=== PATIENT | male | born 1960 | race Caucasian/White ===

== ENCOUNTER 2025-03-01 10:58 | Emergency (ER) | payer MEDICARE ==
[~2025-03-01] VITALS: Ht 175.3 cm; Wt 103.0 kg
[~2025-03-01 10:58] MED LIST: KEPP500 PO
[2025-03-01 11:05] VITALS: O2SAT 96
[2025-03-01 11:51] LABS: BASOPHILS % 0.7 % (0.0-2.0); EOSINOPHILS % 4.1 % (0.0-5.0); HEMATOCRIT. 41.1 % (42.0-52.0); HEMOGLOBIN. 13.5 g/dL (14.0-18.0); LYMPHOCYTES % 25.0 % (20.0-50.0); MEAN PLATELET VOLUME 8.4 fl (7.4-10.4); MONOCYTES % 4.5 % (2.0-8.0); NEUTROPHILS % 65.7 % (40.0-76.0); PLATELET 228 x1000/uL (130-400); RED BLOOD CELL COUNT 4.41 mill/uL (4.7-6.1); RED CELL DISTRIBUTION WIDTH 15.0 % (11.6-14.6)
[2025-03-01 12:04] LABS: CREATININE 2.0 mg/dL (0.6-1.3); UREA NITROGEN BLOOD 16.0 mg/dL (9-23)
[2025-03-01] MEDS ORDERED: DEXT15DR5 LEFTEYE (12:14)
[2025-03-01] MEDS ORDERED: P20 MT (12:14)
[2025-03-01 12:22] VITALS: BP 173/98; PULSE 66; RESP 18; TEMP 36.9; O2SAT 96
== END 2025-03-01 12:27 | disposition home or self-care (01) ==
LOC: ER 10:58
DX: G51.0 Bell's palsy (principal); N18.6 End stage renal disease; I12.0 Hypertensive chronic kidney disease with stage 5 chronic kidney disease or end stage renal disease; Z79.899 Other long term (current) drug therapy; Z99.2 Dependence on renal dialysis
CPT/HCPCS: 36415; 80048; 85025; 99284

== ENCOUNTER 2025-03-21 08:36 | Inpatient (IN) | payer MEDICARE ==
[~2025-03-21] VITALS: Ht 175.3 cm; Wt 116.6 kg
[~2025-03-21 08:36] MED LIST changes: +DEXT15DR5 LEFTEYE; +P20 MT
[2025-03-21] MEDS: SODIUM CHLORIDE 0.9% (SEPSIS BOLUS) IV ONE ×2 (09:26)
[2025-03-21] MEDS: PIPERACILLIN/TAZO 3.375G/50ML 50 ML IV SCH (09:31)
[2025-03-21 09:37] LABS: HEMATOCRIT. 43.0 % (42.0-52.0); HEMOGLOBIN. 14.3 g/dL (14.0-18.0); MEAN PLATELET VOLUME 9.0 fl (7.4-10.4); PLATELET 162 x1000/uL (130-400); RED BLOOD CELL COUNT 4.65 mill/uL (4.7-6.1); RED CELL DISTRIBUTION WIDTH 15.3 % (11.6-14.6)
[2025-03-21] MEDS: ACETAMINOPHEN 1000MG/100ML 100 ML IV ONE (09:44)
[2025-03-21 09:45] LABS: CREATININE 1.9 mg/dL (0.6-1.3); UREA NITROGEN BLOOD 16 mg/dL (9-23)
[2025-03-21 09:47] LABS: ASPARTATE AMINOTRANSFERASE 19 IU/L (<34); BILIRUBIN DIRECT 0.3 mg/dL (<=3.0); BILIRUBIN TOTAL 1.4 mg/dL (0.1-1.0); PROTEIN TOTAL 7.1 g/dL (6.0-8.3)
[2025-03-21 09:53] LABS: INR 1.0
[2025-03-21 09:59] LABS: TROPONIN I HIGH SENSITIVITY 26 ng/L (3.0-53)
[2025-03-21] MEDS: VANCOMYCIN 1G PREMIX 200 ML IV SCH (10:07)
[2025-03-21 10:09] LABS: BAND% 14.0 % (1.0-6.0); LYMPHOCYTES % MANUAL 9.0 % (20.0-50.0); NEUTROPHILS % MANUAL 77.0 % (45.0-75.0); PLATELET ESTIMATE NORMAL
[2025-03-21 11:08] LABS: CLARITY URINE CLEAR (CLEAR); COLOR URINE YELLOW (YELLOW); GLUCOSE URINE NEGATIVE (NEGATIVE); KETONES URINE NEGATIVE (NEGATIVE); LEUKOCYTE ESTERASE URINE NEGATIVE (NEGATIVE); NITRITE URINE NEGATIVE (NEGATIVE); OCCULT BLOOD URINE 1+ (NEGATIVE); PH URINE 7.5 (4.5-8.0); PROTEIN URINE 3+ (NEGATIVE); SPECIFIC GRAVITY URINE 1.011 (1.005-1.030); UROBILINOGEN URINE 0.2 E.U./dL (0.2-1.0)
[2025-03-21 11:50] LABS: WBC URINE 0-2 /hpf (0-2)
[2025-03-21 11:51] LABS: SQUAMOUS EPITHELIAL CELL URINE 1+ /lpf (RARE/1+)
[2025-03-21 11:52] LABS: BACTERIA URINE 1+
[2025-03-21 11:53] LABS: HYALINE CASTS URINE 0-5 /lpf
[2025-03-21 12:00] VITALS: BP 147/89; PULSE 73; RESP 17; TEMP 36.4; O2SAT 95
[2025-03-21 12:21] VITALS: BP 147/89; PULSE 73; RESP 17; TEMP 36.418
[2025-03-21] MEDS ORDERED: ZOLPIDEM TARTRATE 5MG TABLET PO PRN (13:15)
[2025-03-21] MEDS ORDERED: ACETAMINOPHEN 650MG/20.3ML UDC PO PRN (13:45)
[2025-03-21] MEDS: CEFTRIAXONE 1GM/50ML 50 ML IV SCH (14:32)
[2025-03-21] MEDS: MAGNESIUM 4 G PREMIX 100 ML IV ONE (14:32)
[2025-03-21] MEDS: AZITHROMYCIN 500 MG TABLET PO SCH (15:32)
[2025-03-21 16:00] VITALS: BP 152/88; PULSE 64; RESP 17; TEMP 36.7; O2SAT 98
[2025-03-21 20:00] VITALS: BP 169/96; PULSE 63; RESP 17; TEMP 37.1; O2SAT 97
[2025-03-21] MEDS: FAMOTIDINE 20MG TABLET PO SCH (20:17)
[2025-03-21] MEDS: GUAIFENESIN 600MG ER TABLET PO SCH (20:17)
[2025-03-21] MEDS: LEVETIRACETAM 500MG TABLET PO SCH (20:17)
[2025-03-21] MEDS: ENOXAPARIN 30MG/0.3ML SYR SUBCUT SCH (20:18)
[2025-03-21] MEDS: CLONIDINE 0.1MG TABLET PO PRN (21:09)
[2025-03-22] VITALS (12 sets, daily range): BP systolic 137–168; BP diastolic 75–100; PULSE 58–93; RESP 16–21; TEMP 36.6–37.2; O2SAT 93–97
[2025-03-22 06:45] LABS: BASOPHILS % 0.2 % (0.0-2.0); EOSINOPHILS % 0.8 % (0.0-5.0); HEMATOCRIT. 40.8 % (42.0-52.0); HEMOGLOBIN. 13.1 g/dL (14.0-18.0); LYMPHOCYTES % 9.6 % (20.0-50.0); MEAN PLATELET VOLUME 9.0 fl (7.4-10.4); MONOCYTES % 3.3 % (2.0-8.0); NEUTROPHILS % 86.1 % (40.0-76.0); PLATELET 137 x1000/uL (130-400); RED BLOOD CELL COUNT 4.34 mill/uL (4.7-6.1); RED CELL DISTRIBUTION WIDTH 15.4 % (11.6-14.6)
[2025-03-22 07:01] LABS: CREATININE 1.8 mg/dL (0.6-1.3)
[2025-03-22 07:03] LABS: UREA NITROGEN BLOOD 15 mg/dL (9-23)
[2025-03-22 07:05] LABS: PHOSPHORUS 4.1 mg/dL (2.5-4.9)
[2025-03-22 08:18] LABS: INFLUENZA TYPE A Presumptive Negative (Pres. Neg.)
[2025-03-22 08:20] LABS: INFLUENZA TYPE B Presumptive Negative (Pres. Neg.)
[2025-03-22] MEDS ORDERED: PROMETHAZINE/DEXTROMETHORPHAN 6.25-15MG/5ML PO PRN (12:00)
[2025-03-22] MEDS ORDERED: IPRATROPIUM/ALBUTEROL 0.5-3(2.5)MG/3ML NEB HHN PRN (12:00)
[2025-03-22] MEDS: METHYLPREDNISOLONE SOD SUCC 125MG/2ML (ACT-O-VIAL) IV NR (12:19)
[2025-03-22] MEDS: IPRATROPIUM/ALBUTEROL 0.5-3(2.5)MG/3ML NEB HHN SCH (12:24)
[2025-03-22] MEDS: DEXT 5%/0.2% NACL 1,000 ML IV SCH (13:20)
[2025-03-22 14:43] LABS: BG BASE EXCESS 1.8 mmol/L (-2.0-3.0); BG CARBOXYHEMOGLOBIN 2.1 % (0.5-1.5); BG DEOXYHEMOGLOBIN 4.8 % (0.0-5.0); BG FRACTION INSPIRED OXYGEN 36; BG HCO3 ACT 32.5 mmol/L (21.0-28.0); BG METHEMOGLOBIN 0.0 % (0.5-1.5); BG OXYGEN SATURATION 95.1 % (94.0-98.0); BG OXYHEMOGLOBIN 93.1 % (94.0-98.0); BG PCO2 84.4 mmHg (35.0-48.0); BG PH 7.204 (7.350-7.450); BG PO2 78.4 mmHg (83.0-108.0); BG SAMPLE SITE RIGHT RADIAL; BG TOTAL HEMOGLOBIN 14.2 g/dL (13.5-17.5); BG VENT MODE NASAL CANNULA
[2025-03-22] MEDS: METHYLPREDNISOLONE SOD SUCC 40MG/ML (ACT-O-VIAL) IV SCH (21:48)
[2025-03-22] MEDS: GUAIFENESIN 600MG ER TABLET PO SCH (21:49)
[2025-03-23] VITALS (21 sets, daily range): BP systolic 134–178; BP diastolic 82–96; PULSE 49–63; RESP 16–25; TEMP 36.1–36.4; O2SAT 89–100
[2025-03-23 08:23] LABS: BASOPHILS % 0.0 % (0.0-2.0); EOSINOPHILS % 0.0 % (0.0-5.0); HEMATOCRIT. 37.8 % (42.0-52.0); HEMOGLOBIN. 12.3 g/dL (14.0-18.0); LYMPHOCYTES % 9.1 % (20.0-50.0); MEAN PLATELET VOLUME 9.5 fl (7.4-10.4); MONOCYTES % 1.3 % (2.0-8.0); NEUTROPHILS % 89.6 % (40.0-76.0); PLATELET 131 x1000/uL (130-400); RED BLOOD CELL COUNT 4.04 mill/uL (4.7-6.1); RED CELL DISTRIBUTION WIDTH 15.3 % (11.6-14.6)
[2025-03-23 08:47] LABS: CREATININE 2.3 mg/dL (0.6-1.3); UREA NITROGEN BLOOD 28.0 mg/dL (9-23)
[2025-03-24] VITALS (14 sets, daily range): BP systolic 138–167; BP diastolic 83–124; PULSE 48–59; RESP 16–28; TEMP 36.4–36.8; O2SAT 94–98
[2025-03-24 06:05] LABS: HEMATOCRIT. 36.9 % (42.0-52.0); HEMOGLOBIN. 12.1 g/dL (14.0-18.0); MEAN PLATELET VOLUME 9.4 fl (7.4-10.4); PLATELET 140 x1000/uL (130-400); RED BLOOD CELL COUNT 4.00 mill/uL (4.7-6.1); RED CELL DISTRIBUTION WIDTH 15.2 % (11.6-14.6)
[2025-03-24 06:11] LABS: CREATININE 2.2 mg/dL (0.6-1.3)
[2025-03-24 06:12] LABS: UREA NITROGEN BLOOD 35.0 mg/dL (9-23)
[2025-03-24 17:03] LABS: LYMPHOCYTES % MANUAL 9.0 % (20.0-50.0); MONOCYTES % MANUAL 2.0 % (2.0-8.0); NEUTROPHILS % MANUAL 89.0 % (45.0-75.0); PLATELET ESTIMATE SLIGHTLY DECREASED
[2025-03-25] VITALS (14 sets, daily range): BP systolic 135–166; BP diastolic 64–89; PULSE 48–65; RESP 16–26; TEMP 36.2–36.8; O2SAT 94–100
[2025-03-25] MEDS: HYDRALAZINE 20MG/ML VIAL IV PRN (00:22)
[2025-03-25 06:25] LABS: CREATININE 1.9 mg/dL (0.6-1.3); UREA NITROGEN BLOOD 32.0 mg/dL (9-23)
[2025-03-25] MEDS: ACETAMINOPHEN 650MG/20.3ML UDC PO PRN (12:13)
[2025-03-26] VITALS (11 sets, daily range): BP systolic 145–183; BP diastolic 81–100; PULSE 58–70; RESP 15–24; TEMP 36.7–36.9; O2SAT 91–98
[2025-03-27] VITALS (10 sets, daily range): BP systolic 151–162; BP diastolic 81–86; PULSE 64–71; RESP 16–22; TEMP 36.5–36.9; O2SAT 92–97
[2025-03-27 09:38] LABS: BG BASE EXCESS 4.9 mmol/L (-2.0-3.0); BG CARBOXYHEMOGLOBIN 1.9 % (0.5-1.5); BG DEOXYHEMOGLOBIN 15.0 % (0.0-5.0); BG FRACTION INSPIRED OXYGEN 21; BG HCO3 ACT 33.3 mmol/L (21.0-28.0); BG METHEMOGLOBIN 0.1 % (0.5-1.5); BG OXYGEN SATURATION 84.7 % (94.0-98.0); BG OXYHEMOGLOBIN 83.0 % (94.0-98.0); BG PCO2 67.9 mmHg (35.0-48.0); BG PH 7.308 (7.350-7.450); BG PO2 51.1 mmHg (83.0-108.0); BG SAMPLE SITE RIGHT RADIAL; BG TOTAL HEMOGLOBIN 13.5 g/dL (13.5-17.5); BG VENT MODE ROOM AIR
[2025-03-27] MEDS: CEFTRIAXONE 1GM/50ML 50 ML IV SCH (14:00)
[2025-03-28] VITALS: BP 145/86; PULSE 82; RESP 18; TEMP 36.8; O2SAT 94
[2025-03-28 04:00] VITALS: BP 158/89; PULSE 79; RESP 16; TEMP 36.5; O2SAT 95
[2025-03-28 07:01] LABS: CREATININE 1.8 mg/dL (0.6-1.3); UREA NITROGEN BLOOD 26 mg/dL (9-23)
[2025-03-28 07:03] LABS: PHOSPHORUS 3.5 mg/dL (2.5-4.9)
[2025-03-28 07:28] LABS: HEMATOCRIT. 37.8 % (42.0-52.0); HEMOGLOBIN. 12.4 g/dL (14.0-18.0); MEAN PLATELET VOLUME 9.7 fl (7.4-10.4); PLATELET 170 x1000/uL (130-400); RED BLOOD CELL COUNT 4.06 mill/uL (4.7-6.1); RED CELL DISTRIBUTION WIDTH 15.3 % (11.6-14.6)
[2025-03-28 08:00] VITALS: BP 129/87; PULSE 66; RESP 18; TEMP 36.7; O2SAT 97
[2025-03-28 12:00] VITALS: BP 169/93; PULSE 63; RESP 18; TEMP 36.8; O2SAT 95
[2025-03-28 16:00] VITALS: BP 175/91; PULSE 66; RESP 18; TEMP 36.8; O2SAT 95
[2025-03-28 16:10] LABS: EOSINOPHILS % MANUAL 1.0 % (0.0-5.0); LYMPHOCYTES % MANUAL 21.0 % (20.0-50.0); MONOCYTES % MANUAL 6.0 % (2.0-8.0); NEUTROPHILS % MANUAL 72.0 % (45.0-75.0); PLATELET ESTIMATE NORMAL
[2025-03-28 20:00] VITALS: BP 151/84; PULSE 60; RESP 18; TEMP 36.6; O2SAT 94
[2025-03-29] VITALS: BP 149/74; PULSE 64; RESP 16; TEMP 36.5; O2SAT 97
[2025-03-29 04:00] VITALS: BP 165/87; PULSE 62; RESP 18; TEMP 36.5; O2SAT 96
[2025-03-29 08:00] VITALS: BP 164/84; PULSE 64; RESP 15; TEMP 36.7; O2SAT 97
[2025-03-29 12:00] VITALS: BP 155/86; PULSE 60; RESP 16; TEMP 36.8; O2SAT 93
[2025-03-29] MEDS ORDERED: LEVO750T68 PO (13:16)
[2025-03-29 14:03] VITALS: BP 155/86; PULSE 60; RESP 16; TEMP 98.3
== END 2025-03-29 16:04 | disposition home health service (06) | DRG 871 ==
LOC: ER 09:24 → 5WST 10:24 → EDBEDREQTM 10:27 → EDBEDREQ 10:27 → ENRESERV 10:54 → 5EST 03-22 17:47 → 5WST 03-26 18:50 → 5EST 03-26 19:12 → 5WST 03-26 21:52
PROVIDERS: ADMIT Internal Medicine; ATTEND Internal Medicine
PROC: 5A09357 Assistance with Respiratory Ventilation, Less than 24 Consecutive Hours, Continuous Positive Airway Pressure (ICD-10-PCS; principal; 2025-03-22)
PROC: 5A09357 Assistance with Respiratory Ventilation, Less than 24 Consecutive Hours, Continuous Positive Airway Pressure (ICD-10-PCS; 2025-03-23)
PROC: 5A09357 Assistance with Respiratory Ventilation, Less than 24 Consecutive Hours, Continuous Positive Airway Pressure (ICD-10-PCS; 2025-03-24)
DX: A41.51 Sepsis due to Escherichia coli [E. coli] (principal); J18.9 Pneumonia, unspecified organism; N18.6 End stage renal disease; J96.01 Acute respiratory failure with hypoxia; J96.02 Acute respiratory failure with hypercapnia; E87.29 Other acidosis; I12.0 Hypertensive chronic kidney disease with stage 5 chronic kidney disease or end stage renal disease; J44.0 Chronic obstructive pulmonary disease with (acute) lower respiratory infection; N17.9 Acute kidney failure, unspecified; E66.2 Morbid (severe) obesity with alveolar hypoventilation; Z20.822 Contact with and (suspected) exposure to COVID-19; E83.42 Hypomagnesemia; F17.200 Nicotine dependence, unspecified, uncomplicated; Z68.38 Body mass index [BMI] 38.0-38.9, adult; Z79.899 Other long term (current) drug therapy
CPT/HCPCS: 36415; 36600; 71045; 74176; 80048; 80076; 81003; 82375; 82805; 83036; 83605; 83735; 84100; 84145; 84484; 85025; 87070; 87077; 87186; 87426; 87804; 93005; 94070; 94640; 94660; 94664; 96365; 96375; 97161; 99285; A4606; J0360; J0696; J1650; J2543; J2919; J3373; J3475; J7030; J0131

== ENCOUNTER 2025-04-09 08:32 | Emergency (ER) | payer MEDICARE ==
[~2025-04-09] VITALS: Ht 175.3 cm; Wt 100.0 kg
[~2025-04-09 08:32] MED LIST changes: +LEVO750T68 PO
[2025-04-09 08:36] VITALS: BP 116/68; PULSE 73; RESP 18; TEMP 37.1; O2SAT 72; O2SAT 75
[2025-04-09] MEDS ORDERED: SODIUM CHLORIDE 0.9% (SEPSIS BOLUS) IV ONE (09:00)
[2025-04-09 09:29] LABS: BASOPHILS % 0.7 % (0.0-2.0); EOSINOPHILS % 0.5 % (0.0-5.0); HEMATOCRIT. 38.0 % (42.0-52.0); HEMOGLOBIN. 12.0 g/dL (14.0-18.0); LYMPHOCYTES % 12.8 % (20.0-50.0); MEAN PLATELET VOLUME 8.9 fl (7.4-10.4); MONOCYTES % 3.9 % (2.0-8.0); NEUTROPHILS % 82.1 % (40.0-76.0); PLATELET 218 x1000/uL (130-400); RED BLOOD CELL COUNT 4.01 mill/uL (4.7-6.1); RED CELL DISTRIBUTION WIDTH 15.2 % (11.6-14.6)
[2025-04-09 09:42] LABS: CREATININE 2.0 mg/dL (0.6-1.3); UREA NITROGEN BLOOD 10 mg/dL (9-23)
[2025-04-09 09:44] LABS: ASPARTATE AMINOTRANSFERASE 21 IU/L (<34); BILIRUBIN DIRECT 0.1 mg/dL (<=3.0); BILIRUBIN TOTAL 0.5 mg/dL (0.1-1.0); PROTEIN TOTAL 6.2 g/dL (6.0-8.3)
== END 2025-04-09 09:24 | disposition left against medical advice (07) ==
LOC: ER 08:32
DX: R60.1 Generalized edema (principal); I12.0 Hypertensive chronic kidney disease with stage 5 chronic kidney disease or end stage renal disease; N18.6 End stage renal disease; Z99.2 Dependence on renal dialysis; Z79.899 Other long term (current) drug therapy; Z53.29 Procedure and treatment not carried out because of patient's decision for other reasons
CPT/HCPCS: 99284; 80076; 80048; 83605; 85025; 84145; 93005; J7030

== ENCOUNTER 2025-04-10 01:22 | Inpatient (IN) | payer MEDICARE ==
[~2025-04-10] VITALS: Ht 172.7 cm; Wt 113.4 kg
[2025-04-10] VITALS (8 sets, daily range): PULSE 69; RESP 18–22; O2SAT 92
[2025-04-10 02:40] LABS: BASOPHILS % 0.5 % (0.0-2.0); EOSINOPHILS % 0.9 % (0.0-5.0); HEMATOCRIT. 38.0 % (42.0-52.0); HEMOGLOBIN. 12.2 g/dL (14.0-18.0); LYMPHOCYTES % 13.7 % (20.0-50.0); MEAN PLATELET VOLUME 9.7 fl (7.4-10.4); MONOCYTES % 4.3 % (2.0-8.0); NEUTROPHILS % 80.6 % (40.0-76.0); PLATELET 184 x1000/uL (130-400); RED BLOOD CELL COUNT 4.03 mill/uL (4.7-6.1); RED CELL DISTRIBUTION WIDTH 15.9 % (11.6-14.6)
[2025-04-10 02:52] LABS: CREATININE 1.9 mg/dL (0.6-1.3); UREA NITROGEN BLOOD 10 mg/dL (9-23)
[2025-04-10 02:53] LABS: ETHANOL BLOOD < 10 mg/dL (<10)
[2025-04-10 02:54] LABS: ASPARTATE AMINOTRANSFERASE 25 IU/L (<34); BILIRUBIN DIRECT 0.1 mg/dL (<=3.0); BILIRUBIN TOTAL 0.5 mg/dL (0.1-1.0)
[2025-04-10 02:55] LABS: PROTEIN TOTAL 6.1 g/dL (6.0-8.3)
[2025-04-10] MEDS: FUROSEMIDE 40MG/4ML VIAL IVP ONE (04:11)
[2025-04-10] MEDS: IOHEXOL-350 100 ML BOTTLE ONE (04:12)
[2025-04-10 04:58] LABS: INR 1.0
[2025-04-10] MEDS: ONDANSETRON HCL 4MG/2ML INJ IV ONE (05:36)
[2025-04-10] MEDS: HYDRALAZINE 20MG/ML VIAL IV ONE (05:45)
[2025-04-10] MEDS: METHYLPREDNISOLONE SOD SUCC 125MG/2ML (ACT-O-VIAL) IV SCH (08:28)
[2025-04-10] MEDS ORDERED: CLONIDINE 0.1MG TABLET PO PRN (08:45)
[2025-04-10] MEDS ORDERED: ONDANSETRON HCL 4MG/2ML INJ IV PRN (08:45)
[2025-04-10] MEDS ORDERED: DOCUSATE SODIUM 100MG CAPSULE PO PRN (08:45)
[2025-04-10] MEDS ORDERED: DEXTROSE 50% WATER 50ML SYRINGE IV PRN (08:45)
[2025-04-10] MEDS ORDERED: LORAZEPAM 0.5MG TABLET PO PRN (08:45)
[2025-04-10] MEDS ORDERED: ACETAMINOPHEN 325MG TABLET PO PRN ×2 (08:45)
[2025-04-10] MEDS ORDERED: GUAIFENESIN 200MG/10ML SUGAR FREE UDC PO PRN (08:45)
[2025-04-10] MEDS ORDERED: HYDRALAZINE 20MG/ML VIAL IV PRN (09:00)
[2025-04-10] MEDS ORDERED: LEVETIRACETAM 500MG in NACL 100ML PREMIX IV SCH (09:00)
[2025-04-10] MEDS: IPRATROPIUM/ALBUTEROL 0.5-3(2.5)MG/3ML NEB HHN SCH (09:09)
[2025-04-10 09:38] LABS: LDL CHOLESTEROL 102.0 mg/dL (5-100); TRIGLYCERIDE 67.0 mg/dL (0-150)
[2025-04-10] MEDS: LEVETIRACETAM 500MG PREMIX 100ML IV SCH (10:06)
[2025-04-10 10:57] LABS: BG BASE EXCESS 10.2 mmol/L (-2.0-3.0); BG CARBOXYHEMOGLOBIN 0.9 % (0.5-1.5); BG DEOXYHEMOGLOBIN 14.6 % (0.0-5.0); BG FRACTION INSPIRED OXYGEN 100; BG HCO3 ACT 42.0 mmol/L (21.0-28.0); BG METHEMOGLOBIN 0.3 % (0.5-1.5); BG OXYGEN SATURATION 85.2 % (94.0-98.0); BG OXYHEMOGLOBIN 84.2 % (94.0-98.0); BG PCO2 101.1 mmHg (35.0-48.0); BG PH 7.236 (7.350-7.450); BG PO2 51.0 mmHg (83.0-108.0); BG SAMPLE SITE RIGHT RADIAL; BG TOTAL HEMOGLOBIN 13.9 g/dL (13.5-17.5); BG VENT MODE MASK - BIPAP
[2025-04-10 13:57] LABS: BG BASE EXCESS 9.7 mmol/L (-2.0-3.0); BG CARBOXYHEMOGLOBIN 1.1 % (0.5-1.5); BG DEOXYHEMOGLOBIN 7.7 % (0.0-5.0); BG FRACTION INSPIRED OXYGEN 100; BG HCO3 ACT 40.0 mmol/L (21.0-28.0); BG METHEMOGLOBIN 0.1 % (0.5-1.5); BG OXYGEN SATURATION 92.2 % (94.0-98.0); BG OXYHEMOGLOBIN 91.1 % (94.0-98.0); BG PCO2 85.6 mmHg (35.0-48.0); BG PH 7.287 (7.350-7.450); BG PO2 63.1 mmHg (83.0-108.0); BG SAMPLE SITE RIGHT RADIAL; BG TOTAL HEMOGLOBIN 14.0 g/dL (13.5-17.5); BG VENT MODE MASK - BIPAP; BG VENT RATE 20.0 set
[2025-04-10] MEDS: BLOOD SUGAR DIAGNOSTIC STRIP TEST SCH (14:07)
[2025-04-10] MEDS: ACETYLCYSTEINE 200MG/ML 20% VIAL 4ML INH SCH (14:16)
[2025-04-10 15:40] LABS: TROPONIN I HIGH SENSITIVITY 44 ng/L (3.0-53)
[2025-04-10] MEDS: ENOXAPARIN 30MG/0.3ML SYR SUBCUT SCH (16:06)
[2025-04-10] MEDS: METHYLPREDNISOLONE SOD SUCC 40MG/ML (ACT-O-VIAL) IV SCH (16:09)
[2025-04-11] VITALS (13 sets, daily range): BP systolic 124–164; BP diastolic 79–90; PULSE 57–66; RESP 16–21; TEMP 36.5848–37; O2SAT 83–95
[2025-04-11] MEDS: IPRATROPIUM/ALBUTEROL 0.5-3(2.5)MG/3ML NEB HHN PRN (00:57)
[2025-04-11 06:34] LABS: HEMATOCRIT. 39.5 % (42.0-52.0); HEMOGLOBIN. 13.0 g/dL (14.0-18.0); MEAN PLATELET VOLUME 9.3 fl (7.4-10.4); PLATELET 186 x1000/uL (130-400); RED BLOOD CELL COUNT 4.23 mill/uL (4.7-6.1); RED CELL DISTRIBUTION WIDTH 15.5 % (11.6-14.6)
[2025-04-11 07:02] LABS: CREATININE 2.0 mg/dL (0.6-1.3); UREA NITROGEN BLOOD 20.0 mg/dL (9-23)
[2025-04-11 15:59] LABS: BG BASE EXCESS 8.8 mmol/L (-2.0-3.0); BG CARBOXYHEMOGLOBIN 0.6 % (0.5-1.5); BG DEOXYHEMOGLOBIN 7.5 % (0.0-5.0); BG FRACTION INSPIRED OXYGEN 40; BG HCO3 ACT 35.6 mmol/L (21.0-28.0); BG METHEMOGLOBIN 0.3 % (0.5-1.5); BG OXYGEN SATURATION 92.4 % (94.0-98.0); BG OXYHEMOGLOBIN 91.6 % (94.0-98.0); BG PCO2 58.7 mmHg (35.0-48.0); BG PH 7.401 (7.350-7.450); BG PO2 61.6 mmHg (83.0-108.0); BG SAMPLE SITE RIGHT RADIAL; BG TOTAL HEMOGLOBIN 13.4 g/dL (13.5-17.5); BG VENT MODE NASAL CANNULA
[2025-04-11] MEDS: IPRATROPIUM/ALBUTEROL 0.5-3(2.5)MG/3ML NEB HHN SCH (17:13)
[2025-04-11 18:54] LABS: LYMPHOCYTES % MANUAL 5.0 % (20.0-50.0); MONOCYTES % MANUAL 3.0 % (2.0-8.0); NEUTROPHILS % MANUAL 92.0 % (45.0-75.0); PLATELET ESTIMATE NORMAL
[2025-04-11] MEDS: ATORVASTATIN CALCIUM 40MG TABLET PO SCH (21:19)
[2025-04-12] VITALS (20 sets, daily range): BP systolic 111–154; BP diastolic 70–92; PULSE 54–65; RESP 16–26; TEMP 36.5–36.9; O2SAT 90–99
[2025-04-12 07:24] LABS: CREATININE 1.9 mg/dL (0.6-1.3)
[2025-04-12 07:25] LABS: TRIGLYCERIDE 103.0 mg/dL (0-150); UREA NITROGEN BLOOD 36.0 mg/dL (9-23)
[2025-04-12 07:26] LABS: LDL CHOLESTEROL 97.0 mg/dL (5-100)
[2025-04-12 07:36] LABS: HEMATOCRIT. 35.8 % (42.0-52.0); HEMOGLOBIN. 11.6 g/dL (14.0-18.0); MEAN PLATELET VOLUME 9.4 fl (7.4-10.4); PLATELET 166 x1000/uL (130-400); RED BLOOD CELL COUNT 3.83 mill/uL (4.7-6.1); RED CELL DISTRIBUTION WIDTH 15.0 % (11.6-14.6)
[2025-04-12] MEDS: ASPIRIN 81MG EC TABLET PO SCH (10:16)
[2025-04-12] MEDS: CLOPIDOGREL 75MG TABLET PO SCH (10:16)
[2025-04-12 11:10] LABS: BG BASE EXCESS 9.4 mmol/L (-2.0-3.0); BG CARBOXYHEMOGLOBIN 0.7 % (0.5-1.5); BG DEOXYHEMOGLOBIN 7.2 % (0.0-5.0); BG FLOW(L/min) 4.00 L/min; BG FRACTION INSPIRED OXYGEN 36; BG HCO3 ACT 35.3 mmol/L (21.0-28.0); BG METHEMOGLOBIN 0.3 % (0.5-1.5); BG OXYGEN SATURATION 92.7 % (94.0-98.0); BG OXYHEMOGLOBIN 91.8 % (94.0-98.0); BG PCO2 53.1 mmHg (35.0-48.0); BG PH 7.440 (7.350-7.450); BG PO2 62.8 mmHg (83.0-108.0); BG SAMPLE SITE LEFT RADIAL; BG TOTAL HEMOGLOBIN 13.1 g/dL (13.5-17.5); BG VENT MODE NASAL CANNULA
[2025-04-12] MEDS ORDERED: ASPI-1406 PO (12:50)
[2025-04-12] MEDS ORDERED: CLOP-31 PO (12:50)
[2025-04-12] MEDS ORDERED: LIP40 PO (12:50)
[2025-04-13 13:50] LABS: BAND% 7.0 % (1.0-6.0); LYMPHOCYTES % MANUAL 4.0 % (20.0-50.0); MONOCYTES % MANUAL 3.0 % (2.0-8.0); NEUTROPHILS % MANUAL 86.0 % (45.0-75.0); PLATELET ESTIMATE NORMAL
== END 2025-04-12 17:55 | disposition home or self-care (01) | DRG 70 ==
LOC: ER 01:22 → EDBEDREQTM 05:34 → EDBEDREQ 05:34 → CANRESERV 07:02 → ENRESERV 07:02 → EDBEDREQSVC 09:14 → CANRESERV 21:21 → ENRESERV 21:21 → 5EST 23:11
PROVIDERS: ADMIT Internal Medicine; ATTEND Internal Medicine
PROC: 5A09357 Assistance with Respiratory Ventilation, Less than 24 Consecutive Hours, Continuous Positive Airway Pressure (ICD-10-PCS; principal; 2025-04-10)
PROC: 5A09357 Assistance with Respiratory Ventilation, Less than 24 Consecutive Hours, Continuous Positive Airway Pressure (ICD-10-PCS; 2025-04-11)
PROC: 5A09357 Assistance with Respiratory Ventilation, Less than 24 Consecutive Hours, Continuous Positive Airway Pressure (ICD-10-PCS; 2025-04-12)
DX: G93.41 Metabolic encephalopathy (principal); J96.21 Acute and chronic respiratory failure with hypoxia; J96.22 Acute and chronic respiratory failure with hypercapnia; I16.1 Hypertensive emergency; E66.2 Morbid (severe) obesity with alveolar hypoventilation; E87.29 Other acidosis; Z99.81 Dependence on supplemental oxygen; D64.9 Anemia, unspecified; E11.22 Type 2 diabetes mellitus with diabetic chronic kidney disease; J44.1 Chronic obstructive pulmonary disease with (acute) exacerbation; N18.9 Chronic kidney disease, unspecified; G81.94 Hemiplegia, unspecified affecting left nondominant side; E11.65 Type 2 diabetes mellitus with hyperglycemia; G51.0 Bell's palsy; Z99.3 Dependence on wheelchair; F17.210 Nicotine dependence, cigarettes, uncomplicated; I13.10 Hypertensive heart and chronic kidney disease without heart failure, with stage 1 through stage 4 chronic kidney disease, or unspecified chronic kidney disease; Z79.899 Other long term (current) drug therapy; R47.81 Slurred speech; Z68.29 Body mass index [BMI] 29.0-29.9, adult; R47.1 Dysarthria and anarthria
CPT/HCPCS: 36415; 36600; 70496; 70498; 70551; 71045; 80048; 80061; 80076; 80320; 82140; 82375; 82805; 82962; 83036; 83605; 83880; 84145; 84443; 84484; 85025; 93005; 93970; 94070; 94640; 94660; 94664; 96372; 96374; 96375; 97162; 97166; 99284; 99285; A4606; A4615; J1650; J1938; J1953; J2405; J2919; J7030; J7608; Q9967; G0480

== ENCOUNTER 2025-04-30 19:27 | Inpatient (IN) | payer MEDICARE ==
[~2025-04-30] VITALS: Ht 175.3 cm; Wt 119.4 kg
[~2025-04-30 19:27] MED LIST changes: +ASPI-1406 PO; +CLOP-31 PO; -LEVO750T68 PO; +LIP40 PO; -P20 MT
[2025-04-30 20:35] LABS: BASOPHILS % 0.4 % (0.0-2.0); EOSINOPHILS % 0.4 % (0.0-5.0); HEMATOCRIT. 37.3 % (42.0-52.0); HEMOGLOBIN. 11.9 g/dL (14.0-18.0); LYMPHOCYTES % 11.8 % (20.0-50.0); MEAN PLATELET VOLUME 7.9 fl (7.4-10.4); MONOCYTES % 5.1 % (2.0-8.0); NEUTROPHILS % 82.3 % (40.0-76.0); PLATELET 271 x1000/uL (130-400); RED BLOOD CELL COUNT 3.98 mill/uL (4.7-6.1); RED CELL DISTRIBUTION WIDTH 15.1 % (11.6-14.6)
[2025-04-30 20:46] LABS: INR 1.0
[2025-04-30] MEDS: CEFTRIAXONE 1GM/50ML 50 ML IV ONE (21:06)
[2025-04-30 21:13] LABS: CREATININE 1.8 mg/dL (0.6-1.3); ETHANOL BLOOD < 10 mg/dL (<10); UREA NITROGEN BLOOD 13 mg/dL (9-23)
[2025-04-30 21:14] LABS: ASPARTATE AMINOTRANSFERASE 19 IU/L (<34); PROTEIN TOTAL 6.5 g/dL (6.0-8.3)
[2025-04-30 21:15] LABS: BILIRUBIN DIRECT 0.2 mg/dL (<=3.0); BILIRUBIN TOTAL 0.6 mg/dL (0.1-1.0)
[2025-04-30] MEDS ORDERED: ONDANSETRON HCL 4MG/2ML INJ IV PRN (21:15)
[2025-04-30] MEDS: AZITHROMYCIN 500MG/250ML 250 ML IV SCH (21:40)
[2025-04-30 22:32] LABS: BG BASE EXCESS 6.9 mmol/L (-2.0-3.0); BG CARBOXYHEMOGLOBIN 2.1 % (0.5-1.5); BG DEOXYHEMOGLOBIN 9.2 % (0.0-5.0); BG FLOW(L/min) 6.00 L/min; BG FRACTION INSPIRED OXYGEN 44; BG HCO3 ACT 38.8 mmol/L (21.0-28.0); BG METHEMOGLOBIN 0.2 % (0.5-1.5); BG OXYGEN SATURATION 90.6 % (94.0-98.0); BG OXYHEMOGLOBIN 88.5 % (94.0-98.0); BG PCO2 102.3 mmHg (35.0-48.0); BG PH 7.197 (7.350-7.450); BG PO2 68.6 mmHg (83.0-108.0); BG SAMPLE SITE RIGHT RADIAL; BG TOTAL HEMOGLOBIN 13.5 g/dL (13.5-17.5); BG VENT MODE NASAL CANNULA
[2025-04-30 22:50] VITALS: RESP 23
[2025-04-30] MEDS ORDERED: FENTANYL 2500MCG/250ML PMX 250 ML IV SCH (23:15)
[2025-04-30] MEDS: ROCURONIUM BROMIDE 10MG/ML VIAL 5ML IV ONE (23:19)
[2025-04-30] MEDS: ETOMIDATE 2MG/ML 10ML VIAL IV ONE (23:19)
[2025-04-30] MEDS: SODIUM CHLORIDE 0.9% (SEPSIS BOLUS) IV ONE (23:20)
[2025-04-30 23:25] VITALS: PULSE 96; RESP 24; O2SAT 93
[2025-04-30] MEDS: PROPOFOL 10MG/ML 100ML 100 ML IV SCH (23:26)
[2025-05-01] VITALS (106 sets, daily range): BP systolic 83–147; BP diastolic 64–110; PULSE 50–86; RESP 0–26; TEMP 36.7–37.1; O2SAT 88–100
[2025-05-01] MEDS: FENTANYL 2500MCG/250ML PMX 250 ML IV PRN
[2025-05-01] MEDS: IOHEXOL-350 100 ML BOTTLE ONE (00:24)
[2025-05-01] MEDS ORDERED: CLONIDINE 0.1MG TABLET PO PRN (00:45)
[2025-05-01] MEDS ORDERED: ACETAMINOPHEN 325MG TABLET PO PRN ×2 (00:45)
[2025-05-01] MEDS ORDERED: DOCUSATE SODIUM 100MG CAPSULE PO PRN (00:45)
[2025-05-01] MEDS ORDERED: ASPIRIN 300MG SUPP PR ONE (01:15)
[2025-05-01] MEDS ORDERED: NOREPINEPHRINE 8MG/250ML PMX 250 ML IV PRN (02:45)
[2025-05-01 04:45] LABS: BG BASE EXCESS 6.6 mmol/L (-2.0-3.0); BG CARBOXYHEMOGLOBIN 1.1 % (0.5-1.5); BG DEOXYHEMOGLOBIN 3.2 % (0.0-5.0); BG FRACTION INSPIRED OXYGEN 100; BG HCO3 ACT 32.0 mmol/L (21.0-28.0); BG METHEMOGLOBIN 0.1 % (0.5-1.5); BG OXYGEN SATURATION 96.8 % (94.0-98.0); BG OXYHEMOGLOBIN 95.6 % (94.0-98.0); BG PCO2 48.9 mmHg (35.0-48.0); BG PEEP (cmH2O) 5.0 cmH2O; BG PH 7.434 (7.350-7.450); BG PO2 81.8 mmHg (83.0-108.0); BG SAMPLE SITE LEFT RADIAL; BG TIDAL VOLUME(mL) 500.0 mL; BG TOTAL HEMOGLOBIN 12.9 g/dL (13.5-17.5); BG VENT RATE 20.0 set
[2025-05-01] MEDS: METHYLPREDNISOLONE SOD SUCC 40MG/ML (ACT-O-VIAL) IV SCH (05:06)
[2025-05-01] MEDS: PIPERACILLIN/TAZO 3.375G/50ML 50 ML IV SCH (05:07)
[2025-05-01 06:06] LABS: BASOPHILS % 0.2 % (0.0-2.0); EOSINOPHILS % 0.5 % (0.0-5.0); HEMATOCRIT. 36.0 % (42.0-52.0); HEMOGLOBIN. 11.9 g/dL (14.0-18.0); LYMPHOCYTES % 8.3 % (20.0-50.0); MEAN PLATELET VOLUME 8.5 fl (7.4-10.4); MONOCYTES % 4.4 % (2.0-8.0); NEUTROPHILS % 86.6 % (40.0-76.0); PLATELET 250 x1000/uL (130-400); RED BLOOD CELL COUNT 3.88 mill/uL (4.7-6.1); RED CELL DISTRIBUTION WIDTH 15.0 % (11.6-14.6)
[2025-05-01 06:27] LABS: CREATININE 1.9 mg/dL (0.6-1.3); UREA NITROGEN BLOOD 14.0 mg/dL (9-23)
[2025-05-01] MEDS ORDERED: LEVETIRACETAM 500MG in NACL 100ML PREMIX IV SCH (09:00)
[2025-05-01] MEDS ORDERED: PANTOPRAZOLE SODIUM 40 MG/VIAL IV SCH (09:00)
[2025-05-01] MEDS: IPRATROPIUM/ALBUTEROL 0.5-3(2.5)MG/3ML NEB HHN PRN (09:02)
[2025-05-01] MEDS: LEVETIRACETAM 500MG PREMIX 100 ML IV SCH (09:14)
[2025-05-01] MEDS: PANTOPRAZOLE SODIUM 40 MG/VIAL IV SCH (09:14)
[2025-05-01] MEDS: ENOXAPARIN 30MG/0.3ML SYR SUBCUT SCH (09:29)
[2025-05-01] MEDS: PROPOFOL 10MG/ML 100ML 100 ML IV PRN (09:33)
[2025-05-01 10:20] LABS: TROPONIN I HIGH SENSITIVITY 22 ng/L (3.0-53)
[2025-05-01] MEDS: MIDAZOLAM 100MG/100ML PMX 100 ML IV PRN (11:24)
[2025-05-01] MEDS: METHYLPREDNISOLONE SOD SUCC 125MG/2ML (ACT-O-VIAL) IV SCH (13:30)
[2025-05-01] MEDS ORDERED: FENTANYL 2500MCG/250ML PMX 250 ML IV PRN (15:45)
[2025-05-01] MEDS ORDERED: FENTANYL CITRATE/PF 1,000 MCG in SODIUM CHLORIDE 0.9% 80 ML IV PRN (15:45)
[2025-05-01] MEDS: BLOOD SUGAR DIAGNOSTIC STRIP TEST SCH (16:45)
[2025-05-01] MEDS ORDERED: DEXTROSE 50% WATER 50ML SYRINGE IV PRN (16:45)
[2025-05-01] MEDS: INSULIN LISPRO 100 UNITS/ML SUBCUT SCH (16:45)
[2025-05-01 17:20] LABS: BG BASE EXCESS 8.4 mmol/L (-2.0-3.0); BG CARBOXYHEMOGLOBIN 0.6 % (0.5-1.5); BG DEOXYHEMOGLOBIN 8.2 % (0.0-5.0); BG FRACTION INSPIRED OXYGEN 100; BG HCO3 ACT 33.1 mmol/L (21.0-28.0); BG METHEMOGLOBIN 0.3 % (0.5-1.5); BG OXYGEN SATURATION 91.7 % (94.0-98.0); BG OXYHEMOGLOBIN 90.9 % (94.0-98.0); BG PCO2 46.3 mmHg (35.0-48.0); BG PEEP (cmH2O) 5.0 cmH2O; BG PH 7.472 (7.350-7.450); BG PO2 58.1 mmHg (83.0-108.0); BG SAMPLE SITE RIGHT RADIAL; BG TIDAL VOLUME(mL) 550.0 mL; BG TOTAL HEMOGLOBIN 12.4 g/dL (13.5-17.5); BG VENT MODE VENT - PRVC; BG VENT RATE 18.0 set
[2025-05-01 18:39] LABS: TROPONIN I HIGH SENSITIVITY 24 ng/L (3.0-53)
[2025-05-01 19:10] LABS: BG BASE EXCESS 5.7 mmol/L (-2.0-3.0); BG CARBOXYHEMOGLOBIN 0.7 % (0.5-1.5); BG DEOXYHEMOGLOBIN 4.8 % (0.0-5.0); BG FRACTION INSPIRED OXYGEN 100; BG HCO3 ACT 29.0 mmol/L (21.0-28.0); BG METHEMOGLOBIN 0.1 % (0.5-1.5); BG OXYGEN SATURATION 95.2 % (94.0-98.0); BG OXYHEMOGLOBIN 94.4 % (94.0-98.0); BG PCO2 37.7 mmHg (35.0-48.0); BG PEEP (cmH2O) 5.0 cmH2O; BG PH 7.504 (7.350-7.450); BG PO2 68.5 mmHg (83.0-108.0); BG SAMPLE SITE RIGHT RADIAL; BG TIDAL VOLUME(mL) 550.0 mL; BG TOTAL HEMOGLOBIN 12.0 g/dL (13.5-17.5); BG VENT MODE VENT - PRVC; BG VENT RATE 18.0 set
[2025-05-01 19:58] LABS: T4 FREE 1.67 ng/dL (0.89-1.76)
[2025-05-01] MEDS: LORAZEPAM 0.5MG TABLET PO PRN (23:58)
[2025-05-02] VITALS (70 sets, daily range): BP systolic 96–140; BP diastolic 61–90; PULSE 53–68; RESP 14–22; TEMP 36.2–36.9; O2SAT 96–100
[2025-05-02 06:12] LABS: HEMATOCRIT. 37.2 % (42.0-52.0); HEMOGLOBIN. 11.8 g/dL (14.0-18.0); MEAN PLATELET VOLUME 9.4 fl (7.4-10.4); PLATELET 213 x1000/uL (130-400); RED BLOOD CELL COUNT 3.97 mill/uL (4.7-6.1); RED CELL DISTRIBUTION WIDTH 15.6 % (11.6-14.6)
[2025-05-02 06:35] LABS: CREATININE 2.3 mg/dL (0.6-1.3)
[2025-05-02 06:39] LABS: TRIGLYCERIDE 80 mg/dL (0-150); UREA NITROGEN BLOOD 18 mg/dL (9-23)
[2025-05-02 06:40] LABS: PHOSPHORUS 1.8 mg/dL (2.5-4.9)
[2025-05-02] MEDS: FUROSEMIDE 20MG/2ML VIAL IVP NR (08:07)
[2025-05-02 09:05] LABS: BG BASE EXCESS 5.9 mmol/L (-2.0-3.0); BG CARBOXYHEMOGLOBIN 0.9 % (0.5-1.5); BG DEOXYHEMOGLOBIN 8.9 % (0.0-5.0); BG HCO3 ACT 30.7 mmol/L (21.0-28.0); BG METHEMOGLOBIN 0.3 % (0.5-1.5); BG OXYGEN SATURATION 91.0 % (94.0-98.0); BG OXYHEMOGLOBIN 89.9 % (94.0-98.0); BG PCO2 45.4 mmHg (35.0-48.0); BG PEEP (cmH2O) 5.0 cmH2O; BG PH 7.448 (7.350-7.450); BG PO2 58.2 mmHg (83.0-108.0); BG TOTAL HEMOGLOBIN 12.1 g/dL (13.5-17.5)
[2025-05-02] MEDS: SODIUM PHOSPHATE 15 MMOL in DEXT 5% WATER 245 ML IV NR (09:36)
[2025-05-02 11:00] LABS: BG FRACTION INSPIRED OXYGEN 90; BG SAMPLE SITE LEFT RADIAL; BG TIDAL VOLUME(mL) 500.0 mL; BG VENT RATE 18.0 set
[2025-05-02 11:02] LABS: BG VENT MODE VENT - PRVC
[2025-05-02 11:22] LABS: BAND% 3.0 % (1.0-6.0); LYMPHOCYTES % MANUAL 8.0 % (20.0-50.0); MONOCYTES % MANUAL 2.0 % (2.0-8.0); NEUTROPHILS % MANUAL 87.0 % (45.0-75.0); PLATELET ESTIMATE NORMAL
[2025-05-02] MEDS: DEXT 5%/0.9% NACL 1,000 ML IV SCH (19:23)
[2025-05-02] MEDS: IPRATROPIUM/ALBUTEROL 0.5-3(2.5)MG/3ML NEB HHN SCH (20:22)
[2025-05-03] VITALS (104 sets, daily range): BP systolic 101–152; BP diastolic 67–95; PULSE 50–82; RESP 0–29; TEMP 36.2–36.6; O2SAT 95–100
[2025-05-03] MEDS: ACETYLCYSTEINE 200MG/ML 20% VIAL 4ML INH SCH (00:10)
[2025-05-03 06:38] LABS: CREATININE 2.1 mg/dL (0.6-1.3); UREA NITROGEN BLOOD 16 mg/dL (9-23)
[2025-05-03 06:40] LABS: PHOSPHORUS 3.0 mg/dL (2.5-4.9)
[2025-05-03 07:07] LABS: HEMATOCRIT. 35.9 % (42.0-52.0); HEMOGLOBIN. 11.4 g/dL (14.0-18.0); MEAN PLATELET VOLUME 9.3 fl (7.4-10.4); PLATELET 285 x1000/uL (130-400); RED BLOOD CELL COUNT 3.85 mill/uL (4.7-6.1); RED CELL DISTRIBUTION WIDTH 15.8 % (11.6-14.6)
[2025-05-03] MEDS: ONDANSETRON HCL 4MG/2ML INJ IV PRN (09:27)
[2025-05-03] MEDS: GUAIFENESIN 200MG/10ML SUGAR FREE UDC PO PRN (09:31)
[2025-05-03 10:01] LABS: BG BASE EXCESS 3.0 mmol/L (-2.0-3.0); BG CARBOXYHEMOGLOBIN 0.9 % (0.5-1.5); BG DEOXYHEMOGLOBIN 7.5 % (0.0-5.0); BG FRACTION INSPIRED OXYGEN 80; BG HCO3 ACT 27.0 mmol/L (21.0-28.0); BG METHEMOGLOBIN 0.3 % (0.5-1.5); BG OXYGEN SATURATION 92.4 % (94.0-98.0); BG OXYHEMOGLOBIN 91.3 % (94.0-98.0); BG PCO2 39.3 mmHg (35.0-48.0); BG PEEP (cmH2O) 5.0 cmH2O; BG PH 7.455 (7.350-7.450); BG PO2 64.2 mmHg (83.0-108.0); BG SAMPLE SITE RIGHT RADIAL; BG TIDAL VOLUME(mL) 500.0 mL; BG TOTAL HEMOGLOBIN 11.6 g/dL (13.5-17.5); BG VENT MODE VENT - PRVC; BG VENT RATE 16.0 set
[2025-05-03] MEDS: FUROSEMIDE 20MG/2ML VIAL IVP NR (10:26)
[2025-05-03 10:31] LABS: BAND% 8.0 % (1.0-6.0); LYMPHOCYTES % MANUAL 5.0 % (20.0-50.0); MONOCYTES % MANUAL 1.0 % (2.0-8.0); NEUTROPHILS % MANUAL 86.0 % (45.0-75.0); PLATELET ESTIMATE NORMAL
[2025-05-03 13:21] LABS: BG BASE EXCESS 6.2 mmol/L (-2.0-3.0); BG CARBOXYHEMOGLOBIN 0.4 % (0.5-1.5); BG DEOXYHEMOGLOBIN 7.2 % (0.0-5.0); BG FRACTION INSPIRED OXYGEN 80; BG HCO3 ACT 30.7 mmol/L (21.0-28.0); BG METHEMOGLOBIN 0.3 % (0.5-1.5); BG OXYGEN SATURATION 92.7 % (94.0-98.0); BG OXYHEMOGLOBIN 92.1 % (94.0-98.0); BG PCO2 43.6 mmHg (35.0-48.0); BG PEEP (cmH2O) 5.0 cmH2O; BG PH 7.465 (7.350-7.450); BG PO2 64.8 mmHg (83.0-108.0); BG SAMPLE SITE RIGHT RADIAL; BG TIDAL VOLUME(mL) 450.0 mL; BG TOTAL HEMOGLOBIN 12.5 g/dL (13.5-17.5); BG VENT MODE VENT - PRVC; BG VENT RATE 12.0 set
[2025-05-03] MEDS: DOXYCYCLINE 100MG/100ML 100 ML IV SCH (13:31)
[2025-05-04] VITALS (97 sets, daily range): BP systolic 103–158; BP diastolic 64–110; PULSE 50–79; RESP 11–30; TEMP 36.4–36.7; O2SAT 92–100
[2025-05-04 06:48] LABS: HEMATOCRIT. 38.9 % (42.0-52.0); HEMOGLOBIN. 12.2 g/dL (14.0-18.0); MEAN PLATELET VOLUME 10.0 fl (7.4-10.4); PLATELET 255 x1000/uL (130-400); RED BLOOD CELL COUNT 4.12 mill/uL (4.7-6.1); RED CELL DISTRIBUTION WIDTH 15.9 % (11.6-14.6)
[2025-05-04 07:06] LABS: CREATININE 1.9 mg/dL (0.6-1.3); UREA NITROGEN BLOOD 15 mg/dL (9-23)
[2025-05-04 07:08] LABS: PHOSPHORUS 3.3 mg/dL (2.5-4.9)
[2025-05-04] MEDS: FUROSEMIDE 20MG/2ML VIAL IVP SCH (08:15)
[2025-05-04 08:58] LABS: BG BASE EXCESS 6.3 mmol/L (-2.0-3.0); BG CARBOXYHEMOGLOBIN 0.5 % (0.5-1.5); BG DEOXYHEMOGLOBIN 5.9 % (0.0-5.0); BG FRACTION INSPIRED OXYGEN 80; BG HCO3 ACT 31.3 mmol/L (21.0-28.0); BG METHEMOGLOBIN 0.3 % (0.5-1.5); BG OXYGEN SATURATION 94.1 % (94.0-98.0); BG OXYHEMOGLOBIN 93.3 % (94.0-98.0); BG PCO2 46.7 mmHg (35.0-48.0); BG PEEP (cmH2O) 5.0 cmH2O; BG PH 7.444 (7.350-7.450); BG PO2 68.1 mmHg (83.0-108.0); BG SAMPLE SITE RIGHT RADIAL; BG TIDAL VOLUME(mL) 450.0 mL; BG TOTAL HEMOGLOBIN 13.1 g/dL (13.5-17.5); BG VENT MODE VENT - PRVC; BG VENT RATE 12.0 set
[2025-05-04 10:54] LABS: BAND% 9.0 % (1.0-6.0); LYMPHOCYTES % MANUAL 8.0 % (20.0-50.0); MONOCYTES % MANUAL 4.0 % (2.0-8.0); NEUTROPHILS % MANUAL 79.0 % (45.0-75.0); NUCLEATED RED BLOOD CELLS 1 /100 WBC; PLATELET ESTIMATE NORMAL
[2025-05-04] MEDS: MENTHOL/LANOLIN/CALAMINE/ZN OX OINT 71GM TOP SCH (14:54)
[2025-05-04] MEDS: METHYLPREDNISOLONE SOD SUCC 125MG/2ML (ACT-O-VIAL) IV SCH (17:21)
[2025-05-05] VITALS (62 sets, daily range): BP systolic 129–203; BP diastolic 81–152; PULSE 60–101; RESP 13–32; TEMP 36.4–37.2; O2SAT 92–100
[2025-05-05 01:04] LABS: BG BASE EXCESS 8.4 mmol/L (-2.0-3.0); BG CARBOXYHEMOGLOBIN 0.8 % (0.5-1.5); BG DEOXYHEMOGLOBIN 4.0 % (0.0-5.0); BG FLOW(L/min) 15.00 L/min; BG FRACTION INSPIRED OXYGEN 100; BG HCO3 ACT 34.2 mmol/L (21.0-28.0); BG METHEMOGLOBIN 0.0 % (0.5-1.5); BG OXYGEN SATURATION 96.0 % (94.0-98.0); BG OXYHEMOGLOBIN 95.2 % (94.0-98.0); BG PCO2 52.2 mmHg (35.0-48.0); BG PH 7.434 (7.350-7.450); BG PO2 82.3 mmHg (83.0-108.0); BG SAMPLE SITE RIGHT RADIAL; BG TOTAL HEMOGLOBIN 13.5 g/dL (13.5-17.5); BG VENT MODE MASK - NRB
[2025-05-05] MEDS: HYDRALAZINE 20MG/ML VIAL IV PRN (03:16)
[2025-05-05] MEDS: LORAZEPAM 2MG/ML UD SYRINGE IV PRN (04:37)
[2025-05-05 07:06] LABS: HEMATOCRIT. 38.4 % (42.0-52.0); HEMOGLOBIN. 12.6 g/dL (14.0-18.0); MEAN PLATELET VOLUME 9.5 fl (7.4-10.4); PLATELET 283 x1000/uL (130-400); RED BLOOD CELL COUNT 4.20 mill/uL (4.7-6.1); RED CELL DISTRIBUTION WIDTH 15.4 % (11.6-14.6)
[2025-05-05 07:19] LABS: CREATININE 1.8 mg/dL (0.6-1.3)
[2025-05-05 07:20] LABS: UREA NITROGEN BLOOD 20 mg/dL (9-23)
[2025-05-05 07:22] LABS: PHOSPHORUS 3.1 mg/dL (2.5-4.9)
[2025-05-05 09:24] LABS: BG BASE EXCESS 6.9 mmol/L (-2.0-3.0); BG CARBOXYHEMOGLOBIN 0.9 % (0.5-1.5); BG DEOXYHEMOGLOBIN 6.1 % (0.0-5.0); BG FLOW(L/min) 8.00 L/min; BG FRACTION INSPIRED OXYGEN 60; BG HCO3 ACT 32.0 mmol/L (21.0-28.0); BG METHEMOGLOBIN 0.3 % (0.5-1.5); BG OXYGEN SATURATION 93.8 % (94.0-98.0); BG OXYHEMOGLOBIN 92.7 % (94.0-98.0); BG PCO2 47.0 mmHg (35.0-48.0); BG PH 7.451 (7.350-7.450); BG PO2 65.2 mmHg (83.0-108.0); BG SAMPLE SITE RIGHT RADIAL; BG TOTAL HEMOGLOBIN 14.4 g/dL (13.5-17.5); BG VENT MODE MASK - SIMPLE
[2025-05-05] MEDS ORDERED: POTASSIUM CHLORIDE 40 MEQ in DEXT 5% WATER 230 ML IV ONE (13:00)
[2025-05-05] MEDS: IPRATROPIUM/ALBUTEROL 0.5-3(2.5)MG/3ML NEB HHN SCH (13:05)
[2025-05-05] MEDS: KCL 20MEQ/100ML X 2 FOR TOTAL KCL 40MEQ/200ML IV SCH (14:38)
[2025-05-05] MEDS: MAGNESIUM 2 G PREMIX 50 ML IV NR (16:08)
[2025-05-05] MEDS: METHYLPREDNISOLONE SOD SUCC 40MG/ML (ACT-O-VIAL) IV SCH (17:21)
[2025-05-06] VITALS (11 sets, daily range): BP systolic 120–163; BP diastolic 76–97; PULSE 58–72; RESP 14–20; TEMP 36.1–37.1; O2SAT 92–97
[2025-05-06] MEDS ORDERED: CALCIUM GLUCONATE 1,000 MG in DEXT 5% WATER 90 ML IV ONE (08:30)
[2025-05-06 12:13] LABS: BAND% 6.0 % (1.0-6.0); LYMPHOCYTES % MANUAL 3.0 % (20.0-50.0); MONOCYTES % MANUAL 5.0 % (2.0-8.0); NEUTROPHILS % MANUAL 86.0 % (45.0-75.0); PLATELET ESTIMATE NORMAL
[2025-05-06] MEDS: CALCIUM GLUCONATE 1GM PREMIX 50ML IV SCH (12:23)
[2025-05-06] MEDS: DEXT 5%/0.45% NACL 1000ML 1,000 ML IV ONE (17:27)
[2025-05-07] MEDS ORDERED: FAMOTIDINE 20MG/2ML VIAL IV SCH (09:00)
== END 2025-05-06 21:10 | disposition home or self-care (01) | DRG 207 ==
LOC: ER 19:27 → CVICU 23:24 → EDBEDREQTM 23:25 → EDBEDREQ 23:25 → ENRESERV 23:38 → 6WST 05-05 13:29
PROVIDERS: ADMIT Internal Medicine; ATTEND Internal Medicine
PROC: 5A1955Z Respiratory Ventilation, Greater than 96 Consecutive Hours (ICD-10-PCS; principal; 2025-04-30)
PROC: 0BH17EZ Insertion of Endotracheal Airway into Trachea, Via Natural or Artificial Opening (ICD-10-PCS; 2025-04-30)
PROC: 5A09357 Assistance with Respiratory Ventilation, Less than 24 Consecutive Hours, Continuous Positive Airway Pressure (ICD-10-PCS; 2025-04-30)
PROC: 02HV33Z Insertion of Infusion Device into Superior Vena Cava, Percutaneous Approach (ICD-10-PCS; 2025-05-01)
PROC: B548ZZA Ultrasonography of Superior Vena Cava, Guidance (ICD-10-PCS; 2025-05-01)
DX: J96.21 Acute and chronic respiratory failure with hypoxia (principal); J69.0 Pneumonitis due to inhalation of food and vomit; I50.31 Acute diastolic (congestive) heart failure; G92.8 Other toxic encephalopathy; I13.0 Hypertensive heart and chronic kidney disease with heart failure and stage 1 through stage 4 chronic kidney disease, or unspecified chronic kidney disease; N17.9 Acute kidney failure, unspecified; E11.22 Type 2 diabetes mellitus with diabetic chronic kidney disease; J44.1 Chronic obstructive pulmonary disease with (acute) exacerbation; E87.4 Mixed disorder of acid-base balance; D50.9 Iron deficiency anemia, unspecified; J96.22 Acute and chronic respiratory failure with hypercapnia; Z79.02 Long term (current) use of antithrombotics/antiplatelets; N18.9 Chronic kidney disease, unspecified; G47.33 Obstructive sleep apnea (adult) (pediatric); F41.9 Anxiety disorder, unspecified; R00.1 Bradycardia, unspecified; E11.65 Type 2 diabetes mellitus with hyperglycemia; F17.210 Nicotine dependence, cigarettes, uncomplicated; Z79.4 Long term (current) use of insulin; Z79.899 Other long term (current) drug therapy; Z90.49 Acquired absence of other specified parts of digestive tract; Z99.81 Dependence on supplemental oxygen
CPT/HCPCS: 31500; 31720; 36415; 36600; 70496; 70498; 71045; 71250; 76604; 80048; 80076; 80320; 82140; 82375; 82805; 82962; 83605; 83735; 84100; 84145; 84439; 84443; 84478; 84484; 85025; 87070; 93005; 93306; 94002; 94003; 94070; 94640; 94660; 94664; 94667; 96365; 96367; 97161; 99291; 99292; A4606; A4615; J0360; J0456; J0612; J0696; J1650; J1815; J1938; J1953; J2060; J2250; J2405; J2470; J2543; J2704; J2919; J3010; J3475; J3480; J3490; J7030; J7042; J7060; J7608; Q9967; G0480